=== PATIENT | female | born 1985 | race Caucasian/White ===

== ENCOUNTER 2016-07-10 11:42 | Emergency (ER) | payer OTHER ==
--- NOTE | ~2016-07-10 | CT4 ---
[facility] A Service [facility] RADIOLOGY TEXT RESULTS PATIENT: BROCK SHEARER LOCATION: SED : [birth year] UNIT #: [id number] AGE: [address]: John Catalan MD SEX: F ORDER DR: [id number] [address] [id number] E MR#: [id number] Acc #: [id number] NAME: BROCK SHEARER : 1985 SEX: F STUDY DATE/TIME: 07/10/2016 11:38 UNIT: SED ROOM: STUDY DESCRIPTION: CT Abd and Pelv Wo Cont Attending Physician: John Catalan M.D. Ordering Physician: John Catalan M.D. Primary Care Physician: [facility] MEDICAL IMAGING REPORT This report is preliminary unless electronic signature is present. EXAM CT of the abdomen and pelvis without contrast. INDICATION 30-year-old female with low back pain, abdominal pain, right flank pain, recent kidney infection [address] of the abdomen and pelvis was performed without contrast. Coronal and sagittal reformatted images obtained. This CT exam was performed with one or more of the following radiation dose reduction techniques: automatic exposure control, adjustment of mA and/or kV according to patient size, and iterative reconstruction. COMPARISON STUDIES Compared with 07/01/2016. FINDINGS The lung bases are clear. The liver, gallbladder, and spleen are unremarkable. Stable left-sided pelvocaliectasis. Stable severe right hydronephrosis and multiple nonobstructing lower pole kidney stones. Stable dilatation of the proximal right ureter. No definite obstructing stone. The adrenal glands are unremarkable. The pancreas is unremarkable. PELVIS: Urinary bladder is unremarkable. There is some stable nonspecific thickening of the rectum and lower sigmoid. This may indicate colitis. Remainder of the pelvis is unremarkable. Bone windows are unremarkable. IMPRESSION 1. No significant change in the appearance of the kidneys. Stable severe right hydronephrosis and some layering nonobstructing stones [facility] A Service of [facility] RADIOLOGY TEXT RESULTS PATIENT: BROCK SHEARER LOCATION: SED : [birth year] UNIT #: [id number] AGE: [address]: John Catalan MD SEX: F ORDER DR: and mild dilatation of the proximal right ureter. Stable left pelvocaliectasis. 2. Stable nonspecific thickening of the rectum and lower sigmoid which may indicate colitis. Please correlate clinically. Dictated by... Williams Martinez M.D. THIS IS AN ELECTRONICALLY VERIFIED REPORT Williams Martinez M.D. at 07/10/2016 5:06 PM [place]/anna TD: 07/10/2016 14:08 JOB #: [id number] MEDICAL IMAGING REPORT
[2016-07-10 11:23] LABS: URINE APPEARANCE CLEAR; URINE BILIRUBIN NEG (NEG); URINE BLOOD 3+ (NEG); URINE COLOR YELLOW; URINE GLUCOSE NEG (NORM); URINE KETONE NEG (NEG); URINE LEUKOCYTE ESTERASE 1+ (NEG); URINE NITRATE POS (NEG); URINE PH 6.5 (5-8); URINE PROTEIN 3+ (NEG); URINE SOURCE CLEAN CATCH; URINE UROBILINOGEN 0.2 MG/DL (NORM)
[2016-07-10 11:32] LABS: MICRO INDICATED? YES; URINE RBC 25-50 /[HPF] (0-2)
[2016-07-10 11:33] LABS: CULTURE INDICATED? YES; URINE BACTERIA 1+ (NEG); URINE SQUAMOUS EPITHELIAL CELL FEW /[HPF]
[2016-07-10 11:38] LABS: BASOPHIL# 0.1 X10e3 (0-0.3); BASOPHIL% 0.6 % (0-2.5); EOSINOPHIL% 0.4 % (0.0-7.0); HEMATOCRIT 43.3 % (35.0-45.0); HEMOGLOBIN 14.7 gm/dL (12.0-16.0); LYMPHOCYTE# 1.2 X10e3 (1.0-3.5); LYMPHOCYTE% 10.8 % (17.0-45.0); MEAN CELL VOLUME 94.3 FL (83-96); MEAN CORPUSCULAR HGB CONC 33.9 g/dL (30-36); MONOCYTE# 0.6 X10e3 (0-1.0); MONOCYTE% 5.2 % (3.0-12.0); NEUTROPHIL# 8.9 X10e3 (1.5-7.1); PLATELET COUNT 198 X10e3 (140-420); RED CELL DISTRIBUTION WIDTH 12.8 % (11.0-15.5); WHITE BLOOD COUNT 10.8 X10e3 (4.0-10.5)
[~2016-07-10 11:42] MED LIST: AFRIN NASAL SPR15 ML; ALPRAZOLAM PO; AMITRYPTYLINE PO; BACTRIM DS TABL1 TA1 PO; BROMFED PO; CIPRO PO; CLARITIN-D1 TAB 12 H PO; CORTISPORIN-TC10 ML OT; DICLOFENAC SODI50 MG PO; FLEXERIL10 MG PO; KEFLEX500 M1 PO; KEFLEX500 M2 PO; LEVAQUIN PO; LORTAB 5-325 M1 EACH PO; NAPROXEN PO; NO MEDICATIONS; PHENERGAN PO; PHENERGAN VC W120 M1 PO; PYRIDIUM PO; PYRIDIUM100 MG PO; TRAMADOL HCL50 M1 PO; ULTRAM PO; VICODIN 5/500 T1 TAB PO; VOLTAREN75 MG PO; ZOFRAN ODT4 MG PO; [UNRECOGNIZED DRUG - REMARK]
[2016-07-10 11:43] LABS: DIFF IND NO
[2016-07-10 11:58] LABS: ALBUMIN SERUM 4.6 g/dL (3.5-5.0); ALKALINE PHOSPHATASE 34 U/L (32-92); ALT (SGPT) 12 U/L (10-40); AST (SGOT) 19 U/L (10-42); BILIRUBIN,TOTAL 1.1 mg/dL (0.2-2.0); BLOOD UREA NITROGEN 17 mg/dL (9-23); BUN/CREATININE RATIO 21.25; CALCIUM SERUM 9.2 mg/dL (8.4-10.2); CARBON DIOXIDE 25 mmol/L (22-31); CHLORIDE 106 mmol/L (100-111); CREATININE SERUM 0.8 mg/dL (0.6-1.4); GLOM FILT RATE Estimated ABOVE60 mL/min (>60); GLUCOSE FASTING 91 mg/dL (70-110); LIPASE 31 U/L (22-51); POTASSIUM 3.7 mmol/L (3.5-5.1); PROTEIN TOTAL SERUM 7.8 g/dL (6.0-8.3); SODIUM 139 mmol/L (135-145)
[2016-07-27] MEDS ORDERED: BACTRIM DS TABL1 TA2 PO (01:45)
[2016-07-27] MEDS ORDERED: MACROBID100 MG PO (01:45)
== END 2016-07-10 12:32 | disposition home or self-care (01) ==
LOC: SED 11:42
PROVIDERS: Emergency Medicine
DX: R10.9 Unspecified abdominal pain (principal); Z88.8 Allergy status to other drugs, medicaments and biological substances
CPT/HCPCS: 36415; 74176; 80053; 81003; 83690; 84703; 85025; 87086; 96374; 99284; J1885

== ENCOUNTER 2016-07-27 02:17 | Emergency (ER) | payer OTHER ==
[2016-07-27 02:15] LABS: URINE SOURCE CLEAN CATCH
[~2016-07-27 02:17] MED LIST changes: +BACTRIM DS TABL1 TA2 PO; +MACROBID100 MG PO
[2016-07-27 02:18] LABS: URINE APPEARANCE HAZY; URINE BILIRUBIN NEG (NEG); URINE BLOOD TRACE-INTACT (NEG); URINE COLOR YELLOW; URINE GLUCOSE NEG (NORM); URINE KETONE NEG (NEG); URINE LEUKOCYTE ESTERASE 3+ (NEG); URINE NITRATE POS (NEG); URINE PROTEIN TRACE (NEG); URINE SPECIFIC GRAVITY 1.025 (1.003-1.035)
[2016-07-27 02:22] LABS: MICRO INDICATED? YES
[2016-07-27 02:25] LABS: URINE WBC INNUM /[HPF] (0-5)
[2016-07-27 02:26] LABS: CULTURE INDICATED? YES; URINE BACTERIA 2+ (NEG); URINE MUCUS PRESENT; URINE SQUAMOUS EPITHELIAL CELL MODERATE /[HPF]
[2016-07-27 03:02] LABS: BASOPHIL# 0.1 X10e3 (0-0.3); BASOPHIL% 0.7 % (0-2.5); EOSINOPHIL% 0.2 % (0.0-7.0); HEMATOCRIT 38.5 % (35.0-45.0); LYMPHOCYTE# 0.9 X10e3 (1.0-3.5); LYMPHOCYTE% 8.6 % (17.0-45.0); MEAN CELL VOLUME 93.7 FL (83-96); MEAN CORPUSCULAR HEMOGLOBIN 31.6 PG (28-34); MEAN CORPUSCULAR HGB CONC 33.7 g/dL (30-36); MEAN PLATELET VOLUME 8.2 FL (6.5-11.5); MONOCYTE# 0.7 X10e3 (0-1.0); NEUTROPHIL# 8.2 X10e3 (1.5-7.1); NEUTROPHIL% 83.5 % (40-75); PLATELET COUNT 207 X10e3 (140-420); RED BLOOD COUNT 4.11 X10e (3.90-5.30); RED CELL DISTRIBUTION WIDTH 12.8 % (11.0-15.5); WHITE BLOOD COUNT 9.9 X10e3 (4.0-10.5)
[2016-07-27 03:10] LABS: DIFF IND NO
[2016-07-27 03:19] LABS: BUN/CREATININE RATIO 21.42; CREATININE SERUM 0.7 mg/dL (0.6-1.4); GLOM FILT RATE Estimated 114.6 mL/min (>60); POTASSIUM 3.7 mmol/L (3.5-5.1)
[2016-07-27 03:29] LABS: AMPHETAMINE NEG (NEG); BARBITURATES NEG (NEG); BENZODIAZEPINES NEG (NEG); COCAINE NEG (NEG); MARIJUANA POS (NEG); OPIATES POS (NEG); TRICYCLIC ANTIDEPRESSANTS NEG (NEG); U METHADONE NEG (NEG)
[2016-07-27] MEDS ORDERED: OMNICEF (04:15)
[2016-07-27] MEDS ORDERED: HYDROCODON-ACE1 EAC7 (04:15)
[2016-07-27] MEDS ORDERED: ZOFRAN (04:15)
== END 2016-07-27 04:48 | disposition home or self-care (01) ==
LOC: SED 02:17
PROVIDERS: Emergency Medicine
DX: N10 Acute pyelonephritis (principal); F17.200 Nicotine dependence, unspecified, uncomplicated; Z88.8 Allergy status to other drugs, medicaments and biological substances
CPT/HCPCS: 36415; 80048; 80307; 81003; 84703; 85025; 87086; 87088; 87186; 96361; 96365; 96375; 99284; J0696; J1885; J2405